=== PATIENT | female | born 1965 | race African-American/Black ===

== ENCOUNTER 2024-09-18 12:04 | Inpatient (IN) | payer OTHER ==
[2024-09-18] MEDS ORDERED: chlordiazePOXIDE HCL 25 MG CAPSULE PO PRN (13:45)
[2024-09-18] MEDS ORDERED: IBUPROFEN 600 MG TABLET (FP) PO PRN (13:45)
[2024-09-18] MEDS ORDERED: MAGNESIUM HYDROX 2400MG/30ML ORAL SUSPENSION 30 ML CUP PO PRN (13:45)
[2024-09-18] MEDS ORDERED: ACETAMINOPHEN 325 MG TABLET (FP) PO PRN (13:45)
[2024-09-18] MEDS ORDERED: NALOXONE (NARCAN) HCL 4 MG/0.1 ML SPRAY NS PRN (13:45)
[2024-09-18] MEDS ORDERED: ONDANSETRON *ODT* 4 MG TABLET SL PRN (13:45)
[2024-09-18] MEDS ORDERED: BENZOCAINE/MENTHOL (CHLORASEPTIC ) LOZENGE MM PRN (13:45)
[2024-09-18] MEDS ORDERED: guaiFENesin 600 MG TABLET.ER (FP) PO PRN (13:45)
[2024-09-18] MEDS ORDERED: DICYCLOMINE HCL 10 MG CAPSULE PO PRN (13:45)
[2024-09-18] MEDS ORDERED: BENZONATATE 200 MG CAPSULE PO PRN (13:45)
[2024-09-18] MEDS ORDERED: LOPERAMIDE HCL 2 MG CAPSULE PO PRN (13:45)
[2024-09-18] MEDS ORDERED: IBUPROFEN 400 MG TABLET (FP) PO PRN (13:45)
[2024-09-18] MEDS ORDERED: POLYETHYLENE GLYCOL (HEALTHYLAX) 3350 17 GM PACKET PO PRN (13:45)
[2024-09-18 13:58] VITALS: BMI 30.6
[2024-09-18] MEDS ORDERED: chlordiazePOXIDE HCL 25 MG CAPSULE ONE (15:34)
[2024-09-18] MEDS ORDERED: PRENATAL VITAMINS W/ FOLIC ACID TABLET (FP) PO ONE (15:34)
[2024-09-18] MEDS: chlordiazePOXIDE HCL 25 MG CAPSULE PO ONE (15:36)
[2024-09-18] MEDS: PRENATAL VITAMINS W/ FOLIC ACID TABLET (FP) PO SCH (15:36)
[2024-09-18] MEDS: NALTREXONE HCL 50 MG TABLET PO SCH (16:42)
[2024-09-18] MEDS: chlordiazePOXIDE HCL 25 MG CAPSULE PO SCH (17:52)
[2024-09-18] MEDS: METHOCARBAMOL 500 MG TABLET PO PRN (18:58)
[2024-09-18] MEDS: PREGABALIN 100 MG CAPSULE PO SCH (22:39)
[2024-09-18] MEDS: THIAMINE 100 MG TABLET PO SCH (22:39)
[2024-09-18] MEDS: hydrOXYzine PAMOATE 25 MG CAPSULE (FP) PO PRN (22:39)
[2024-09-18] MEDS: MELATONIN 5 MG TABLETS PO SCH (22:39)
[2024-09-18] MEDS: ATORVASTATIN CA 20 MG TABLET (FP) PO SCH (22:39)
[2024-09-19] MEDS: FERROUS SO4 325 MG TABLET (FP) PO SCH (10:04)
[2024-09-19] MEDS: CYANOCOBALAMIN 1,000 MCG TABLET (FP) PO SCH (10:04)
[2024-09-19] MEDS: CHOLECALCIFEROL (VIT D3) 1,000 UNIT (25 MCG) TABLET PO SCH (10:04)
[2024-09-19] MEDS: PANTOPRAZOLE 40 MG TABLET PO SCH (10:04)
[2024-09-19] MEDS: LOSARTAN 50MG/HCTZ 12.5MG 1 TAB PO SCH (10:04)
[2024-09-19 14:37] LABS: HEMATOCRIT 33.7 % (32.4-45.2); HEMOGLOBIN 11.2 GM/dL (10.7-15.3); MCH 32.2 pg (25.7-33.7); MCHC 33.3 g/dl (32.0-36.0); MEAN CELL VOLUME 96.7 fl (80-96); MEAN PLT VOLUME 11.5 fl (7.5-11.1); PLATELET COUNT 142 10^3/uL (134-434); RBC 3.49 M/mm3 (3.60-5.2); RDW 14.8 % (11.6-15.6); WHITE BLOOD COUNT 3.7 K/mm3 (4.0-10.0)
[2024-09-19 15:14] LABS: CHLORIDE 112 mmol/L (98-107); POTASSIUM 3.9 mmol/L (3.5-5.1); SODIUM 144 mmol/L (136-145)
[2024-09-19 15:20] LABS: CREATININE 0.8 mg/dL (0.55-1.3); SGOT/AST 95 U/L (15-37)
[2024-09-19 15:22] LABS: ALBUMIN 3.4 g/dl (3.4-5.0); ANION GAP 4 mmol/L (4-13); BLOOD UREA NITROGEN 11.2 mg/dL (7-18); CALCIUM 8.6 mg/dL (8.5-10.1); CO2 28 mmol/L (21-32); GLUCOSE,RANDOM 110 mg/dL (74-106)
[2024-09-19 15:25] LABS: SGPT/ALT 96 U/L (13-61)
[2024-09-19 15:27] LABS: TOT PROT 5.9 g/dl (6.4-8.2)
[2024-09-19 15:28] LABS: ALK PHOS 100 U/L (45-117)
[2024-09-19 15:29] LABS: BILIRUBIN,TOTAL 0.5 mg/dL (0.2-1)
[2024-09-19] MEDS: traZODone HCL 50 MG TABLET (FP) PO SCH (22:13)
[2024-09-20] MEDS: chlordiazePOXIDE HCL 25 MG CAPSULE PO SCH (05:23)
[2024-09-20] MEDS: MAG HYDROX/AL HYDROX/SIMETH 30 ML UNIT-DOSE CUP PO PRN (05:52)
[2024-09-20] MEDS: CITALOPRAM HYDROBROMIDE 20 MG TABLET PO SCH (10:23)
[2024-09-20] MEDS: BISMUTH SUBSALICYLATE 262 MG/15 ML BTL PO PRN (17:35)
[2024-09-20] MEDS: DOCUSATE SODIUM 100 MG CAPSULE (FP) PO PRN (17:51)
[2024-09-20] MEDS: BISACODYL 5 MG TABLET.DR (FP) PO SCH (18:34)
[2024-09-20] MEDS: DOCUSATE SODIUM 100 MG CAPSULE (FP) PO SCH (22:22)
[2024-09-21] MEDS ORDERED: chlordiazePOXIDE HCL 10 MG CAPSULE PO PRN
[2024-09-21] MEDS: chlordiazePOXIDE HCL 10 MG CAPSULE PO SCH (05:15)
[2024-09-21 13:06] VITALS: BP 140/83; PULSE 60; RESP 18; TEMP 97.5
[2024-09-21] MEDS: NALOXONE (NYS OPIOID OVERDOSE PROGRAM) 4 MG/0.1 ML SPRAY NS SCH (13:23)
[2024-09-22] MEDS ORDERED: chlordiazePOXIDE HCL 10 MG CAPSULE PO SCH (05:00)
[2024-09-23] MEDS ORDERED: chlordiazePOXIDE HCL 10 MG CAPSULE PO ONE (05:00)
== END 2024-09-21 13:50 | disposition left against medical advice (07) | DRG 770 ==
LOC: YASAS 12:04 → Y3N 16:17
PROVIDERS: ADMIT Allergy & Immunology; ATTEND Allergy & Immunology
PROC: HZ2ZZZZ Detoxification Services for Substance Abuse Treatment (ICD-10-PCS; principal; 2024-09-18)
DX: F10.230 Alcohol dependence with withdrawal, uncomplicated (principal); F14.20 Cocaine dependence, uncomplicated; F12.20 Cannabis dependence, uncomplicated; F17.210 Nicotine dependence, cigarettes, uncomplicated; F32.9 Major depressive disorder, single episode, unspecified; I10 Essential (primary) hypertension; K21.9 Gastro-esophageal reflux disease without esophagitis; Z86.19 Personal history of other infectious and parasitic diseases
CPT/HCPCS: 36415; 80053; 80305; 80307; 81025; 85027; 86593; 86780; 93005; 93010